=== PATIENT | male | born 2000 | race Caucasian/White ===

== ENCOUNTER 2021-10-21 09:11 | Emergency (ER) | payer OTHER, SELFPAY ==
--- NOTE | ~2021-10-21 | XR_ITS ---
EXAMINATION: XR FOOT, RIGHT CLINICAL INFORMATION: Pain post injury COMPARISON: Right ankle x-ray from the same day TECHNIQUE: AP, lateral, and oblique views of the right foot. FINDINGS: The bones and soft tissues are normal. No fracture. Alignment is anatomic. Joint spaces are maintained. XR/XR foot RT min 3V IMPRESSION: Normal right foot.
--- NOTE | ~2021-10-21 | XR_ITS ---
EXAMINATION: XR ANKLE, RIGHT CLINICAL INFORMATION: Right ankle pain status post injury. COMPARISON: None TECHNIQUE: AP, lateral, and mortise views of the right ankle. An indicator arrow points to the lateral malleolus. FINDINGS: The bones and soft tissues are normal. No fracture. Alignment is anatomic. Joint spaces are maintained. No joint effusion. XR/XR ankle RT min 3V IMPRESSION: Unremarkable right ankle.
[2021-10-21 09:18] VITALS: BP 116/65; PULSE 82; RESP 16; TEMP 36.6; O2SAT 97; BMI 27.1
--- NOTE | 2021-10-21 10:16 | ED.LOWEXIN ---
HPI - Extremity Injury (Lower) General Chief Complaint: Extremity Injury, Lower Stated Complaint: R ankle pain Time Seen by Provider: 10/21/21 09:36 Source: patient Mode of arrival: ambulatory History of Present Illness HPI Narrative: 21-year-old male with no significant past medical history presenting to the ED complaining right ankle/foot pain s/p twisting injury last night while kickboxing. Denies trauma/crush injury, numbness, tingling, weakness complaint: ankle injury Onset (ago): hour(s) Related Data Allergies Allergy/AdvReac Type Severity Reaction Status Date / Time Penicillins Allergy Swelling Verified 10/21/21 09:18 Review of Systems Review of Systems: Constitutional: No Fever, No Chills ENT/Mouth: No Ear Pain, No Nasal Congestion, No Sinus Pain, No Hoarseness, No sore throat, No Rhinorrhea, No Swallowing Difficulty Cardiovascular: No Chest Pain, No SOB Respiratory: No Cough, No Sputum, No Wheezing Gastrointestinal: No Nausea, No Vomiting, No Diarrhea, No Constipation, No Abdominal pain Genitourinary: No Dysuria, No Urinary Frequency, No Hematuria Musculoskeletal: + joint pain, No Myalgias, + Joint Swelling Skin: No Skin Lesions, No rash Neuro: No Weakness, No Numbness, No Paresthesias Yes all other systems are reviewed and are negative Constitutional: Constitutional: Reports as per [facility] Past Medical History Attestation statement: The following information was validated with the patient. Social History Social History Advance Directives: No Advance Directives Information Provided: No Physical Exam Vital Signs: Vital Signs: Last Vital Signs Temp 98 F 10/21/21 09:18 Pulse 82 10/21/21 09:18 Resp 16 10/21/21 09:18 BP 116/65 10/21/21 09:18 Pulse Ox 97 10/21/21 09:18 O2 Del Method 10/21/21 09:18 BMI result Body Mass Index 27.1 Const: General: cooperative, healthy appearing and no acute distress Orientation/consciousness: patient oriented x3 Limitations: no limitations HEENT: Head: Yes normal to inspection and Yes atraumatic Ears: hearing grossly normal bilaterally General nose exam: Normal external nose present Face and sinus: Yes normal facial exam Eyes: General: appearance normal, both eyes and all related structures EOM: EOMs intact bilaterally Neck: Neck: Yes normal visual inspection and Yes no meningeal signs Resp: Effort & Inspection: normal respiratory effort and no respiratory distress Cardio: Rate: regular rate Heart sounds: S1 normal heart sound present and S2 normal heart sound present Peripheral pulses: dorsalis pedis present Skin: Rashes: no rashes Wounds: no wounds Neuro: General: patient oriented x3, tone normal and no meningeal signs Gait exam (Neuro): Normal gait present Extrem: Other: Right ankle with mild lateral malleolar swelling and tenderness to palpation. Proximal foot with tenderness. No appreciable deformity. Neurovascularly intact. Limited ROM of ankle secondary to pain. Sensation intact to light touch Course Course Course Narrative: XR ankle RT min 3V IMPRESSION: Unremarkable right ankle. XR foot RT min 3V IMPRESSION: Normal right foot. > air cast applied for comfort/stability. Patient came in with crutches MDM - Extremity Injury (Lower) MDM Narrative Medical decision making narrative: 21-year-old male with no significant past medical history presenting to the ED complaining right ankle/foot pain s/p twisting injury last night while kickboxing. On exam vital signs stable, NAD, physical exam as above. Concern for ankle /foot sprain versus fracture Plan: X-rays Differential Diagnosis Differential diagnosis: Likely ankle sprain and strain, fracture of toe and ankle fracture Medical Records Attestation: I reviewed the patient's medical records. Lab Data Attestation: I reviewed the patient's lab results. Procedures Orthopedic Splinting/Casting Injury #1: Side: right Lower Extremity Injury Location: ankle Lower Extremity Immobilizer: AirCast Other Orthopedic Equipment: crutches Discharge Plan Discharge Clinical Impression: Ankle sprain and strain Patient Disposition: Home, Self-Care Instructions: Ankle Sprain (ED) Additional Instructions: You sprained your ankle/foot. You do not have a fracture/break. Ice, elevate, wear Aircast as needed for comfort and stability. Use crutches as needed, bear weight as tolerated. Follow up with her doctor. Take Tylenol and Motrin for pain/swelling Referrals: Physician,None [Primary Care Provider] - Stand Alone Forms: Work/School Release
== END 2021-10-21 12:12 | disposition home or self-care (01) ==
PROVIDERS: Emergency Provider Emergency Medicine
DX: S93.401A Sprain of unspecified ligament of right ankle, initial encounter (principal); S96.911A Strain of unspecified muscle and tendon at ankle and foot level, right foot, initial encounter; X50.1XXA Overexertion from prolonged static or awkward postures, initial encounter; Y93.71 Activity, boxing; Y92.39 Other specified sports and athletic area as the place of occurrence of the external cause; Y99.9 Unspecified external cause status
CPT/HCPCS: 73610; 73630; 99283; 99284